=== PATIENT | female | born 1985 | race Hispanic/Latino ===

== ENCOUNTER 2022-01-02 11:12 | Emergency (ER) | payer SELFPAY ==
[2022-01-02 12:07] LABS: Bilirubin Neg (Negative); Blood, Urine 50 (Negative); Clarity Slightly Cloudy (Clear); Glucose, Urine (Dipstick) Normal (Negative); Ketone, Urine Negative (Negative); Leukocyte 500 (Negative); Nitrite Positive (Negative); Protein, Urine (Dipstick) 15 mg/dl (Neg-Trace); Urobilinogen Normal mg/dL (Less than 2)
[2022-01-02 12:14] LABS: WBC/HPF 21-50 HPF (0-3)
[2022-01-02 12:15] LABS: Bacteria/HPF 3+ HPF (None Seen)
[2022-01-02 13:22] LABS: #Basophils 0.1 10x3/uL (0.0-0.2); #Eosinphils 0.1 10x3/uL (0.0-0.5); #Monocytes 0.7 10x3/uL (0.0-1.1); #Neutrophils 10.5 10x3/uL (1.5-8.4); %Basophils 0.5 % (0.0-2.0); %Eosinophils 0.7 % (0.0-6.0); %Lymphocytes 17.3 % (18.0-47.0); %Monocytes 4.8 % (0.0-10.0); %Neutrophils 76.3 % (40.0-75.0); Hemoglobin 13.9 g/dL (12.0-15.5); Mean Corpuscular HGB CONC 34.4 g/dL (32.0-36.0); Mean Corpuscular Hemoglobin 30.3 pg (27.0-33.0); Mean Corpuscular Volume 88.2 fl (81.6-98.3); Mean Platelet Volume 9.5 fl (7.4-10.4); Platelet Count 324 10x3/uL (150-450); RBC Distribution Width 12.8 % (11.5-14.5); Red Blood Cell (RBC) Count 4.58 10x6/uL (3.90-5.03); White Blood Cell (WBC) Count 13.7 10x3/uL (3.5-10.5)
[2022-01-02 13:31] LABS: Albumin 4.5 g/dL (3.5-5.0); Anion Gap 14 mmol/L (10-20); BUN (Urea Nitrogen) 11 mg/dL (7.0-18.7); Bilirubin, Total 0.3 mg/dL (0.2-1.2); Calc. Creatinine Clearance 0 mL/min (70-130); Calcium 9.6 mg/dL (7.8-10.44); Carbon Dioxide 23 mmol/L (22-29); Chloride 105 mmol/L (98-107); Estimated GFR 104; Globulin 3.8 g/dL (2.4-3.5); Glucose 139 mg/dL (70-105); Potassium 3.6 mmol/L (3.5-5.1); Protein, Total 8.3 g/dL (6.0-8.3); Sodium 138 mmol/L (136-145)
[2022-01-02 13:32] LABS: ALT (SGPT) 36 U/L (8-55); AST (SGOT) 23 U/L (5-34); Alkaline Phosphatase 72 U/L (40-110)
[2022-01-02] MEDS ORDERED: Ketorolac Tromethamine 30 MG/ML VIAL ONE (13:41)
[2022-01-02] MEDS ORDERED: Ondansetron PF 4 MG/2 ML Vial ONE ×2 (13:41→18:59)
[2022-01-02 14:03] LABS: BHCG - Serum Negative (NEGATIVE); Pregs Control Background? CLEAR/WHITE (CLR/WHITE); Pregs Control Bar Appear? YES (CONTROL BAR)
[2022-01-02] MEDS ORDERED: Morphine 4 MG/ML VIAL ONE (14:09)
[2022-01-02] MEDS ORDERED: cefTRIAXone\\ROCEPHIN 1 GM VIAL ONE (14:10)
[2022-01-02] MEDS ORDERED: HYDROmorphone 0.5 MG/0.5 ML SYRINGE ONE ×4 (14:50→23:55)
[2022-01-02 16:04] LABS: SARS-CoV-2 NAA Rapid Test Not Detected (NotDetected)
[2022-01-02] MEDS ORDERED: Acetaminophen 650 MG Suppository PR PRN (16:11)
[2022-01-02] MEDS ORDERED: Acetaminophen 325 MG TAB PO PRN (16:11)
[2022-01-02] MEDS ORDERED: Communication Order-Pharmacy FS PRN (16:11)
[2022-01-02] MEDS ORDERED: Lactated Ringer's 1,000 ML IV SCH (16:15)
[2022-01-02] MEDS ORDERED: Morphine 4 MG/ML VIAL SLOW IVP PRN (16:16)
[2022-01-02 17:00] LABS: Phosphorus 3.4 mg/dL (2.3-4.7)
[2022-01-02] MEDS ORDERED: Iopamidol 30 ML ONE (17:38)
[2022-01-02] MEDS ORDERED: Ketorolac Tromethamine 30 MG/ML VIAL IVP SCH (18:00)
[2022-01-02] MEDS ORDERED: PROPOFOL 20 ML ONE (18:58)
[2022-01-02] MEDS ORDERED: Fentanyl 100 MCG/2 ML VIAL ONE ×4 (18:58→22:21)
[2022-01-02] MEDS ORDERED: Succinylcholine 200 MG/10 ml SYRINGE FS ONE (18:59)
[2022-01-02] MEDS ORDERED: Dexamethasone 4 mg/ml Vial ONE (18:59)
[2022-01-02] MEDS ORDERED: Lidocaine 1% PF 5 ML VIAL ONE (18:59)
[2022-01-02] MEDS ORDERED: Promethazine HCl 25 MG/ML VIAL ONE (21:06)
[2022-01-03] MEDS ORDERED: Ondansetron HCl/PF 4 MG/2 ML Vial IVP PRN (00:15)
[2022-01-03] MEDS ORDERED: HYDROmorphone 2 MG/ML VIAL SLOW IVP PRN (00:15)
[2022-01-03] MEDS ORDERED: Promethazine HCl 25 MG/ML VIAL IM/IV PRN (00:15)
[2022-01-03 00:23] LABS: Lactic Acid 1.9 mmol/L (0.5-2.2)
[2022-01-03] MEDS ORDERED: Enoxaparin Sodium 40 MG/0.4 ML SYRINGE SC SCH (09:00)
[2022-01-03] MEDS ORDERED: cefTRIAXone\\ROCEPHIN 2 GM in Sodium Chloride 0.9% 100 ML IVPB SCH (14:00)
== END 2022-01-02 19:00 | disposition admitted as inpatient to this hospital (09) ==
LOC: CSHERS 11:12
DX: N13.2 Hydronephrosis with renal and ureteral calculous obstruction (principal); N30.00 Acute cystitis without hematuria; N12 Tubulo-interstitial nephritis, not specified as acute or chronic; Z20.822 Contact with and (suspected) exposure to COVID-19
CPT/HCPCS: 36415; 51600; 74176; 74430; 80053; 81003; 81015; 83605; 84100; 84703; 85025; 87077; 87086; 87186; 94760; 96365; 96366; 96375; 96376; J0696; J1100; J1170; J1885; J2270; J2405; J2550; J2704; J3010; Q9967; U0002